=== PATIENT | female | born 1960 | race Caucasian/White ===

== ENCOUNTER → 2018-04-27 | Outpatient (CLI) | payer BC | LOC: BRMIMAGING 08:03 | PROVIDERS: ATTEND Hospitalist | DX: Z12.31 Encounter for screening mammogram for malignant neoplasm of breast (principal) ==

== ENCOUNTER → 2018-06-08 | Outpatient (CLI) | payer BC | LOC: BRMIMAGING 13:42 | PROVIDERS: ATTEND Physician Assistant | DX: N60.02 Solitary cyst of left breast (principal); R92.8 Other abnormal and inconclusive findings on diagnostic imaging of breast | CPT/HCPCS: 76641-PO ==